=== PATIENT | female | born 1980 | race African-American/Black ===

== ENCOUNTER → 2017-07-13 | Emergency (ER) | payer MEDICAID ==
[~2017-07-13] MED LIST: ACETAMINOPHEN 325 MG TAB PO PRN; BACT800T5 PO; CEPH500C3 PO; LACTATED RINGER'S 1000 ML INJ 1,000 ML IV SCH; MISOPROSTOL 100 MCG TAB VAGINAL ONE; ONDANSETRON HCL 4 MG/2 ML VIAL IV PUSH PRN; SODIUM CHLORIDE 0.9% FLUSH 10 ML FLUSH IV FLUSH PRN; SODIUM CHLORIDE 0.9% FLUSH 10 ML FLUSH IV FLUSH SCH
--- NOTE | 2017-07-13 21:18 | PD ---
HPI Chief Complaint vaginal bleeding, abdominal cramping Date Seen: Jul 13, 2017 (Monty Drake MD, R3) Travel History International Travel<30 Days: No Contact w/Intl Traveler<30Days: No Known Affected Area: No (Monty Drake MD, R3) History of Present Illness HPI Ms. Mireles is a 37 yo at 12 weeks GA (12 weeks 6/7 days according to US performed at [facility] 07/11/2017; patient estimated at 16 weeks via LMP) who presents with vaginal bleeding and abdominal cramping. Patient states that these symptoms began yesterday. Patient reports that cramping is intermittent. Bleeding is moderate in quantity and fills up her panty liner. Patient states that she had a US 07/11 at [facility] in [place]; she was told her was normal at that time. Patient denies any fever/chills, headaches, chest pain, shortness of breath, abnormal urination, or abnormal bowel movements at this time. Patient reports no prior medical or surgical history. Patient reports normal course so far at [facility]. Records reviewed from [facility] imaging 07/11: Single IUP at 12 weeks 4 days; no heart tones. demise Weeks Gestation: 16 Para: 2 : 4 Miscarriage: 1 (Monty Drake MD, R3) History Past Medical History Medical History: Denies Significant Hx (Monty Drake MD, R3) Obstetric History Obstetric History 2 full term vaginal deliveries 8 and 17 years prior (Monty Drake MD, R3) Past Surgical History Surgical History: No Previous Surgery (Monty Drake MD, R3) Family History Family History: Negative (Monty Drake MD, R3) Social History Alcohol Use: No Tobacco Use: No Substance Abuse: No (Monty Drake MD, R3) Allergies-Medications (Allergen,Severity, Reaction): Coded Allergies: No Known Allergies (Unverified Allergy, Unknown, 07/13/17) Home Meds Active Scripts Cephalexin (Keflex) 500 Mg Cap, 500 MG PO Q6 for 10 Days, CAP Prov:Candie Mix MD 04/12/15 Sulfamethoxazole-Trimethoprim DS (Bactrim DS) 1 Tab Tab, 1 TAB PO Q12HR for 10 Days, TAB Prov:Candie Mix MD 04/12/15 Review of Systems General / Constitutional: No: Fever Eyes: No: Blurred Vision HENT: No: Headaches Cardiovascular: No: Chest Pain or Discomfort Respiratory: No: Short of Breath Gastrointestinal: No: Nausea, Vomiting Genitourinary: No: Urgency, Dysuria Skin: No Rash Neurologic: No: Weakness Psychiatric: No: Anxiety, Depression (Monty Drake MD, R3) Physical Exam BP 232/68 HR 76 Narrative GENERAL: Well-nourished, well-developed patient. SKIN: Warm and dry. HEAD: Normocephalic and atraumatic. EYES: No scleral icterus. No injection or drainage. ENT: No nasal drainage noted. Mucous membranes pink. Airway patent. CARDIOVASCULAR: Regular rate and rhythm without murmurs. Normal perfusion. No LE swelling RESPIRATORY: CTAB; normal rate ABDOMEN/GI: Abdomen soft, non-tender, bowel sounds present, no rebound, no guarding Gravid; FH below umbilicus EXTREMITIES: No cyanosis or edema. BACK: Nontender without obvious deformity. No CVA tenderness. NEUROLOGICAL: Awake and alert. Motor and sensory function grossly within normal limits. GENITOURINARY: Uterine Contractions: None FHT's: No heart tones obtained (Monty Drake MD, R3) Data Data Vital Signs Reviewed: Yes (Monty Drake MD, R3) MDM Medical Record Reviewed: Yes Narrative Course / MDM Ms. Mireles is a 37 yo at 12 weeks GA (12 weeks 6/7 days according to US performed at [facility] 07/11/2017; patient estimated at 16 weeks via LMP) who presents with vaginal bleeding and abdominal cramping -No heart tones with Doppler -Stable maternal vital sign Records reviewed from [facility] imaging 07/11: demise Plan: Bedside US obtained- No heart movement. Minimal/no amniotic fluid. Discussed with patient regarding and options for delivery Updated Plan: Discussed with patient that based on gestational and current stability, we recommend follow-up with RESEARCH STUDY ASSISTANT on-call (Dr. Nichols) for D&C -Advised pain control with Tylenol/Ibuprofen until f/u with Dr. Nichols -Discussed reasons to return to OB ED including fever/chills or other concerns (Monty Drake MD, R3) Diagnosis Diagnosis: Primary Impression: demise before 20 weeks with retention of fetus Disposition: 01 DISCHARGE HOME Condition: Stable Referrals: Lindsay Nichols MD 1 day Patient Instructions: General Instructions Collaborating MD Comments Patient at unknown gestational age followed by Adelia Grimes saw [facility] on 07/11 and had a demise at that time but no communication was done to patient. Sonogram here notes a 11 6/7 week demise, no fluid noted around fetus. Patient will be set up for appt to consider D&C. (Odette Arzate MD) Monty Drake MD, R3 Jul 13, 2017 21:18 Odette Arzate MD Jul 14, 2017 08:29
== END | disposition home or self-care (01) ==
LOC: HOBED 19:27
DX: O02.1 Missed abortion (principal)
CPT/HCPCS: 76815

== ENCOUNTER 2017-07-14 09:43 | Inpatient (IN) | payer MEDICAID ==
[~2017-07-14] VITALS: Ht 170.2 cm; Wt 68.0 kg
[2017-07-14] VITALS (7 sets, daily range): BP systolic 120–161; BP diastolic 62–87; PULSE 72–94; RESP 16–18; TEMP 98.6; O2SAT 95–100
[~2017-07-14 09:43] MED LIST changes: -ACETAMINOPHEN 325 MG TAB PO PRN; -LACTATED RINGER'S 1000 ML INJ 1,000 ML IV SCH; -MISOPROSTOL 100 MCG TAB VAGINAL ONE; -ONDANSETRON HCL 4 MG/2 ML VIAL IV PUSH PRN; -SODIUM CHLORIDE 0.9% FLUSH 10 ML FLUSH IV FLUSH PRN; -SODIUM CHLORIDE 0.9% FLUSH 10 ML FLUSH IV FLUSH SCH
--- NOTE | 2017-07-14 11:37 | PD ---
HPI Chief Complaint: Related Problem Time Seen by Provider: 11:29 Travel History International Travel<30 days: No Contact w/Intl Traveler<30days: No Traveled to known affect area: No History of Present Illness HPI Patient is at 11 weeks gestational age is emergency department vaginal bleeding and abdominal cramping. She was diagnosed yesterday with IUFD. She was seen upstairs in labor and delivery unit, she was deemed stable enough for outpatient workup and follow-up, she was referred to Dr. Nichols's office. She called Dr. Nichols's office this morning and they referred her back to the emergency department to have D&C. She states she still having abdominal cramping and some vaginal spotting. She states she is having fairly regular contractions as well. PFSH Past Medical History Hx Anticoagulant Therapy: No Cardiovascular Problems: No Chemotherapy: No Cerebrovascular Accident: No Diabetes: No Respiratory: No ?: Not : 2 Para: 2 Past Surgical History Hysterectomy: No Social History Alcohol Use: No Tobacco Use: No Substance Use: No Allergies-Medications (Allergen,Severity, Reaction): Coded Allergies: No Known Allergies (Verified Allergy, Unknown, 07/14/17) Reported Meds & Prescriptions Reported Meds & Active Scripts Active No Active Prescriptions or Reported Medications Review of Systems Except as stated in HPI: all other systems reviewed are Neg Physical Exam Narrative GENERAL: Well-developed well-nourished, appears uncomfortable peer SKIN: Warm and dry. HEAD: Atraumatic. Normocephalic. EYES: Pupils equal and round. No scleral icterus. No injection or drainage. ENT: No nasal bleeding or discharge. Mucous membranes pink and moist. NECK: Trachea midline. No JVD. CARDIOVASCULAR: Regular rate and rhythm. RESPIRATORY: No accessory muscle use. Clear to auscultation. Breath sounds equal bilaterally. GASTROINTESTINAL: Abdomen soft, non-tender, nondistended. Hepatic and splenic margins not palpable. MUSCULOSKELETAL: Extremities without clubbing, cyanosis, or edema. No obvious deformities. NEUROLOGICAL: Awake and alert. No obvious cranial nerve deficits. Motor grossly within normal limits. Five out of 5 muscle strength in the arms and legs. Normal speech. PSYCHIATRIC: Appropriate mood and affect; insight and judgment normal. Data Data Last Documented VS Vital Signs Date Time Temp Pulse Resp B/P (MAP) Pulse Ox O2 Delivery O2 Flow Rate FiO2 07/14/17 16:00 77 16 124/74 (91) 99 Room Air 07/14/17 09:45 98.6 Orders Orders Beta Hcg (Quant/Titer) (07/14/17 11:45) Complete Blood Count With Diff (07/14/17 11:45) Comprehensive Metabolic Panel (07/14/17 11:45) Prothrombin Time / Inr (Pt) (07/14/17 11:45) Act Partial Throm Time (Ptt) (07/14/17 11:45) Iv Access Insert/Monitor (07/14/17 11:45) Oximetry (07/14/17 11:45) Sodium Chloride 0.9% Flush (Ns Flush) (07/14/17 11:45) Type And Screen (07/14/17 11:45) Morphine Inj (Morphine Inj) (07/14/17 13:00) Ondansetron Inj (Zofran Inj) (07/14/17 13:00) Sodium Chlor 0.9% 1000 Ml Inj (Ns 1000 M (07/14/17 13:00) Us Pelvis (Ques Preg/Ectopic) (07/14/17 ) Hydromorphone Pf Inj (Dilaudid Pf Inj) (07/14/17 15:00) Oxytocin Inj (Pitocin Inj) (07/14/17 16:15) Methylergonovine Inj (Methergine Inj) (07/14/17 16:15) Misoprostol (Cytotec) (07/14/17 17:00) Hydromorphone Pf Inj (Dilaudid Pf Inj) (07/14/17 17:30) Labs Laboratory Tests Test 07/14/17 12:00 07/14/17 13:15 Blood Urea Nitrogen 7 MG/DL Creatinine 0.73 MG/DL Random Glucose 77 MG/DL Total Protein 8.2 GM/DL Albumin 3.6 GM/DL Calcium Level 8.7 MG/DL Alkaline Phosphatase 68 U/L Aspartate Amino Transf (AST/SGOT) 17 U/L Alanine Aminotransferase (ALT/SGPT) 17 U/L Total Bilirubin 0.5 MG/DL Sodium Level 140 MEQ/L Potassium Level 3.3 MEQ/L Chloride Level 105 MEQ/L Carbon Dioxide Level 27.2 MEQ/L Anion Gap 8 MEQ/L Estimat Glomerular Filtration Rate 109 ML/MIN Human Chorionic Gonadotropin, Quant 409 MIU/ML White Blood Count 9.5 TH/MM3 Red Blood Count 4.35 MIL/MM3 Hemoglobin 13.0 GM/DL Hematocrit 38.7 % Mean Corpuscular Volume 88.8 FL Mean Corpuscular Hemoglobin 29.9 PG Mean Corpuscular Hemoglobin Concent 33.7 % Red Cell Distribution Width 13.4 % Platelet Count 234 TH/MM3 Mean Platelet Volume 8.8 FL Neutrophils (%) (Auto) 60.3 % Lymphocytes (%) (Auto) 30.1 % Monocytes (%) (Auto) 7.3 % Eosinophils (%) (Auto) 2.0 % Basophils (%) (Auto) 0.3 % Neutrophils # (Auto) 5.7 TH/MM3 Lymphocytes # (Auto) 2.8 TH/MM3 Monocytes # (Auto) 0.7 TH/MM3 Eosinophils # (Auto) 0.2 TH/MM3 Basophils # (Auto) 0.0 TH/MM3 CBC Comment DIFF FINAL Differential Comment Prothrombin Time 10.0 SEC Prothromb Time International Ratio 1.0 RATIO Activated Partial Thromboplast Time 22.5 SEC MDM Medical Decision Making Medical Screen Exam Complete: Yes Emergency Medical Condition: Yes Differential Diagnosis Inevitable miscarriage, Rh mismatch, anemia, contractions. Narrative Course Patient roomed in the emergency department, working in tandem with the OB ED, the patient was observed here for several hours given pain medicine and her contractions actually slowed from every 5 minutes down to nothing. On my examination she did have a fair amount of blood and a small amount of membranous tissue at the eyes but nothing that can be grasped and extracted. At 4:00 the patient was discussed with Dr. Grove, she is recommended Methergine as well as Pitocin IM and doses were ordered after discussion with her. His medicines were given and MGMT SPECIALIST will be here to evaluate patient for possible D& C. At 1900 I reassessed the patient and she is still waiting for her products of conception the past. The patient was discussed with Dr. Schreiber who will continue to monitor her, if not passing that he will call the OB hospitalist again for consideration of D&C versus outpatient management Diagnosis Primary Impression: demise before 20 weeks with retention of fetus Scripts No Active Prescriptions or Reported Meds Riccardo Ku MD Jul 14, 2017 11:37
[2017-07-14] MEDS ORDERED: SODIUM CHLORIDE 0.9% FLUSH 10 ML FLUSH IV FLUSH PRN (11:45)
[2017-07-14] MEDS ORDERED: ONDANSETRON HCL 4 MG/2 ML VIAL IV PUSH ONE (13:00)
[2017-07-14] MEDS ORDERED: MORPHINE SULFATE 2 MG/ML INJ IV PUSH ONE (13:00)
[2017-07-14] MEDS ORDERED: SODIUM CHLOR 0.9% 1000 ML INJ 1,000 ML IV ONE (13:00)
[2017-07-14 13:01] LABS: ALBUMIN 3.6 GM/DL (3.4-5.0); ALKALINE PHOSPHATASE 68 U/L (45-117); ALT (GPT) 17 U/L (10-53); AST (GOT) 17 U/L (15-37); BICARBONATE 27.2 MEQ/L (21.0-32.0); BLOOD UREA NITROGEN 7 MG/DL (7-18); CALCIUM 8.7 MG/DL (8.5-10.1); CHLORIDE 105 MEQ/L (98-107); CREATININE 0.73 MG/DL (0.50-1.00); GLOMERULAR FILTRATION RATE 109 ML/MIN (>89); GLUCOSE,RANDOM 77 MG/DL (74-106); SODIUM (NA) 140 MEQ/L (136-145); TOTAL BILIRUBIN ADULT 0.5 MG/DL (0.2-1.0); TOTAL PROTEIN 8.2 GM/DL (6.4-8.2)
[2017-07-14 13:57] LABS: AUTOMATED NEUTROPHIL # 5.7 TH/MM3 (1.8-7.7); BASOPHIL % 0.3 % (0.0-2.0); EOSINOPHIL # 0.2 TH/MM3 (0-0.4); HEMATOCRIT 38.7 % (35.0-46.0); LYMPH % 30.1 % (9.0-44.0); LYMPHOCYTE # 2.8 TH/MM3 (1.0-4.8); MEAN CELL VOLUME 88.8 FL (80.0-100.0); MEAN CORPUSCULAR HEMOGLOBIN 29.9 PG (27.0-34.0); MEAN CORPUSCULAR HGB CONC 33.7 % (32.0-36.0); MEAN PLATELET VOLUME 8.8 FL (7.0-11.0); MONO % 7.3 % (0.0-8.0); MONOCYTE # 0.7 TH/MM3 (0-0.9); NEUT % 60.3 % (16.0-70.0); PLATELET COUNT 234 TH/MM3 (150-450); RED BLOOD COUNT 4.35 MIL/MM3 (4.00-5.30); RED CELL DISTRIBUTION WIDTH 13.4 % (11.6-17.2); WHITE BLOOD COUNT 9.5 TH/MM3 (4.0-11.0)
--- NOTE | 2017-07-14 14:34 | RADRPT ---
EXAM DATE/TIME: 07/14/2017 13:08 [place] COMPARISON: No previous studies available for comparison. INDICATIONS : Strong cramping and bleeding with . LAB(S): Beta-hC MEDICAL HISTORY : . SURGICAL HISTORY : None. ENCOUNTER: Initial ACUITY: 1 day PAIN SCORE: 8/10 LOCATION: Bilateral pelvis MEASUREMENTS: UTERUS: 14.3 x 6.7 x 7.9 cm ENDOMETRIAL STRIPE: >20 mm RIGHT OVARY: 3.6 x 2.2 x 3.0 cm LEFT OVARY: 4.8 x 2.9 x 3.9 cm FREE FLUID: Yes Trace in cul-de-sac CROWN RUMP LENGTH: 5.3 cm = 12 WKS 0 DAYS FHR: None BPM FINDINGS: UTERUS: Fetus seen in the lower uterine canal//cervical region. No heart tones. pole measures 12 weeks. RIGHT OVARY: Ovary contains no mass or significant cystic lesion. LEFT OVARY: Ovary contains no mass or significant cystic lesion. MISCELLANEOUS: No free fluid. CONCLUSION: 1. demise with impending . Leroy Cha MD on July 14, 2017 at 14:29 Board Certified Radiologist. This report was verified electronically.
[2017-07-14] MEDS ORDERED: HYDROmorphone HCL PF 2 MG/ML VIAL IV PUSH ONE ×2 (15:00→23:45)
[2017-07-14] MEDS ORDERED: OXYTOCIN 10 UNIT/ML AMP IM ONE (16:15)
[2017-07-14] MEDS ORDERED: METHYLERGONOVINE MALEATE 0.2 MG/ML VIAL IM ONE (16:15)
[2017-07-14] MEDS ORDERED: MISOPROSTOL 200 MCG TAB RECTAL ONE (17:00)
--- NOTE | 2017-07-14 17:28 | HHI.PR ---
Subjective Remarks Attending note Patient is a 37y/o who was seen last night with a missed Ab. On 07/11/17 she had an ultrasound that showed a fetus measuring 12 weeks. She reportedly had assumed everything was normal, although her report there was no FHR noted on the U/S. She was discharged home last night after presenting with cramping and light bleeding. She presents today with increased cramping and contractions. She reports that the cramping and contractions worsened about 11 PM last night. She reports that this time they were still relatively far apart occurring only occasionally. She reports that this morning around 10 AM the increased to every 10-20 minutes in frequency and were of much more intensity. She reports that at 11 AM she started feeling these contractions every 2-5 minutes. She reports that her bleeding has been light and is just on her third pad since the morning. We discussed that she is having a miscarriage and discussed that there is lower risk associated with allowing her to pass the products without surgical intervention. We discussed that surgery may be required for an incomplete AB or if she experiences significantly heavy bleeding. She was consented for an EUA, D&C, and any other indicated procedures prior to medicating in the event she did not complete the SAB on her own or for heavy bleeding. The risks, benefits, and alternatives were discussed at length including but not limited to pain, infection, bleeding, injury to other organs like the bladder/bowel/nerves/vessels, the need for repeat operation, the need for hysterectomy, the need for blood transfusion, uterine scarring that could interfere with future pregnancies, uterine perforation, and other possible risks. The patient had all of her questions answered and consent was signed. The patient received 10 mg of oxytocin IM 0.2 mg of Methergine IM. 1 mg of Dilaudid was administered for cramping and contractions. Examination at 5:45 PM revealed about 75cc of blood in the vault. Upon the speculum exam the amniotic sac was visualized protruding at the cervix. A vaginal exam reveals a cervix that was 3 cm dilated and thinning out with the sac palpable at edge of cervical os. The patient tolerated the examination well. Cytotec 800 g was placed rectally. We will continue to observe and await/anticipate spontaneous passage at this time. Objective Vital Signs Date Time Temp Pulse Resp B/P (MAP) Pulse Ox O2 Delivery O2 Flow Rate FiO2 07/14/17 14:00 82 16 125/75 (92) 99 Room Air 07/14/17 13:22 99 Room Air 07/14/17 12:00 72 16 127/74 (91) 99 Room Air 07/14/17 09:45 98.6 94 18 161/87 (111) 100 Result Diagram: 07/14/17 1315 07/14/17 1200 Norma Grove MD Jul 14, 2017 17:28
[2017-07-14] MEDS ORDERED: HYDROmorphone HCL PF 2 MG/ML VIAL IV ONE (17:30)
--- NOTE | 2017-07-14 18:35 | HHI.HP ---
HPI Chief Complaint miscarriage Date Seen: Jul 14, 2017 Time Seen: 16:30 Travel History International Travel<30 Days: No Contact w/Intl Traveler<30Days: No Known Affected Area: No History of Present Illness HPI Ms. Mireles is a 37yo [place] female at about 12 weeks gestation with no significant PMH presenting to the ED with vaginal bleeding and likely miscarriage. She was seen in the OB ED last night where an intrauterine demise was diagnosed. Patient was sent home to follow up with Dr. Nichols for a D&C. However, she was told over the phone to come to the hospital for the procedure. She states that her bleeding started and increased today to becoming more like a menstrual cycle. She she also started cramping today. She states that the cramps occur every few minutes. They are located in her lower abdomen. Weeks Gestation: 12 Para: 2 : 4 History Past Medical History Medical History: Denies Significant Hx Obstetric History Obstetric History First -elective by oral medication Second -boy, 17 years old, term, Third -girl, 8 years old, term, Past Surgical History Surgical History: No Previous Surgery Family History Narrative Family History Mother-thyroid problems Father recently passed from prostate cancer Social History Narrative Social History Lives with her children Is employed Denies alcohol, tobacco, or illicit drug use Alcohol Use: No Tobacco Use: No Substance Abuse: No Allergies-Medications (Allergen,Severity, Reaction): Coded Allergies: No Known Allergies (Verified Allergy, Unknown, 07/14/17) Home Meds Discontinued Scripts Cephalexin (Keflex) 500 Mg Cap, 500 MG PO Q6 for 10 Days, CAP Prov:Candie Mix MD 04/12/15 Sulfamethoxazole-Trimethoprim DS (Bactrim DS) 1 Tab Tab, 1 TAB PO Q12HR for 10 Days, TAB Prov:Candie Mix MD 04/12/15 Review of Systems General / Constitutional: No: Fever, Chills HENT: Lightheadedness, No: Headaches Cardiovascular: No: Chest Pain or Discomfort Respiratory: No: Short of Breath Gastrointestinal: Abdominal Pain Genitourinary: No: Dysuria Musculoskeletal: No: Weakness Skin: No Rash Neurologic: Dizziness Physical Exam Vital Signs Date Time Temp Pulse Resp B/P (MAP) Pulse Ox O2 Delivery O2 Flow Rate FiO2 07/14/17 14:00 82 16 125/75 (92) 99 Room Air 07/14/17 13:22 99 Room Air 07/14/17 12:00 72 16 127/74 (91) 99 Room Air 07/14/17 09:45 98.6 94 18 161/87 (111) 100 Narrative GENERAL: Well-nourished, well-developed patient. SKIN: Warm and dry. HEAD: Normocephalic and atraumatic. EYES: No scleral icterus. No injection or drainage. ENT: No nasal drainage noted. Mucous membranes pink. Airway patent. NECK: Supple, trachea midline. No JVD. CARDIOVASCULAR: Regular rate and rhythm without murmurs, gallops, or rubs. RESPIRATORY: Breath sounds equal bilaterally. No accessory muscle use. ABDOMEN/GI: Abdomen soft, non-tender, bowel sounds present, no rebound, no guarding GENITOURINARY: External Genitalia: intact and normal in appearance Cervix: midline, dilated with bag bulging from os EXTREMITIES: No cyanosis or edema. BACK: Nontender without obvious deformity. No CVA tenderness. NEUROLOGICAL: Awake and alert. Motor and sensory grossly within normal limits. Five out of 5 muscle strength in all muscle groups. Normal speech. Caprini VTE Risk Assessment Caprini VTE Risk Assessment: No/Low Risk (score <= 1) Caprini Risk Assessment Model Point Value = 1 Point Value = 2 Point Value = 3 Point Value = 5 Age 41-60 Minor surgery BMI > 25 kg/m2 Swollen legs Varicose veins or History of unexplained or recurrent spontaneous Oral contraceptives or hormone replacement Sepsis (< 1 month) Serious lung disease, including pneumonia (< 1 month) Abnormal pulmonary function Acute myocardial infarction Congestive heart failure (< 1 month) History of inflammatory bowel disease Medical patient at bed rest Age 61-74 Arthroscopic surgery Major open surgery (> 45 min) Laparoscopic surgery (> 45 min) Malignancy Confined to bed (> 72 hours) Immobilizing plaster cast Central venous access Age >= 75 History of VTE Family history of VTE Factor V Leiden Prothrombin [id number] Lupus anticoagulant Anticardiolipin antibodies Elevated serum homocysteine Heparin-induced thrombocytopenia Other congenital or acquired thrombophilia Stroke (< 1 month) Elective arthroplasty Hip, pelvis, or leg fracture Acute spinal cord injury (< 1 month) Prophylaxis Regimen Total Risk Factor Score Risk Level Prophylaxis Regimen 0-1 Low Early ambulation 2 Moderate Order ONE of the following: *Sequential Compression Device (SCD) *Heparin 5000 units SQ BID 3-4 Higher Order ONE of the following medications: *Heparin 5000 units SQ TID *Enoxaparin/Lovenox 40 mg SQ daily (WT < 150 kg, CrCl > 30 mL/min) *Enoxaparin/Lovenox 30 mg SQ daily (WT < 150 kg, CrCl > 10-29 mL/min) *Enoxaparin/Lovenox 30 mg SQ BID (WT < 150 kg, CrCl > 30 mL/min) AND/OR *Sequential Compression Device (SCD) 5 or more Highest Order ONE of the following medications: *Heparin 5000 units SQ TID (Preferred with Epidurals) *Enoxaparin/Lovenox 40 mg SQ daily (WT < 150 kg, CrCl > 30 mL/min) *Enoxaparin/Lovenox 30 mg SQ daily (WT < 150 kg, CrCl > 10-29 mL/min) *Enoxaparin/Lovenox 30 mg SQ BID (WT < 150 kg, CrCl > 30 mL/min) AND *Sequential Compression Device (SCD) Data Data Vital Signs Reviewed: Yes Orders Orders Beta Hcg (Quant/Titer) (07/14/17 11:45) Complete Blood Count With Diff (07/14/17 11:45) Comprehensive Metabolic Panel (07/14/17 11:45) Prothrombin Time / Inr (Pt) (07/14/17 11:45) Act Partial Throm Time (Ptt) (07/14/17 11:45) Iv Access Insert/Monitor (07/14/17 11:45) Oximetry (07/14/17 11:45) Sodium Chloride 0.9% Flush (Ns Flush) (07/14/17 11:45) Type And Screen (07/14/17 11:45) Morphine Inj (Morphine Inj) (07/14/17 13:00) Ondansetron Inj (Zofran Inj) (07/14/17 13:00) Sodium Chlor 0.9% 1000 Ml Inj (Ns 1000 M (07/14/17 13:00) Us Pelvis (Ques Preg/Ectopic) (07/14/17 ) Hydromorphone Pf Inj (Dilaudid Pf Inj) (07/14/17 15:00) Oxytocin Inj (Pitocin Inj) (07/14/17 16:15) Methylergonovine Inj (Methergine Inj) (07/14/17 16:15) Misoprostol (Cytotec) (07/14/17 17:00) Hydromorphone Pf Inj (Dilaudid Pf Inj) (07/14/17 17:30) Labs Laboratory Tests Test 07/14/17 12:00 07/14/17 13:15 Blood Urea Nitrogen 7 Creatinine 0.73 Random Glucose 77 Total Protein 8.2 Albumin 3.6 Calcium Level 8.7 Alkaline Phosphatase 68 Aspartate Amino Transf (AST/SGOT) 17 Alanine Aminotransferase (ALT/SGPT) 17 Total Bilirubin 0.5 Sodium Level 140 Potassium Level 3.3 Chloride Level 105 Carbon Dioxide Level 27.2 Anion Gap 8 Estimat Glomerular Filtration Rate 109 Human Chorionic Gonadotropin, Quant 409 White Blood Count 9.5 Red Blood Count 4.35 Hemoglobin 13.0 Hematocrit 38.7 Mean Corpuscular Volume 88.8 Mean Corpuscular Hemoglobin 29.9 Mean Corpuscular Hemoglobin Concent 33.7 Red Cell Distribution Width 13.4 Platelet Count 234 Mean Platelet Volume 8.8 Neutrophils (%) (Auto) 60.3 Lymphocytes (%) (Auto) 30.1 Monocytes (%) (Auto) 7.3 Eosinophils (%) (Auto) 2.0 Basophils (%) (Auto) 0.3 Neutrophils # (Auto) 5.7 Lymphocytes # (Auto) 2.8 Monocytes # (Auto) 0.7 Eosinophils # (Auto) 0.2 Basophils # (Auto) 0.0 CBC Comment DIFF FINAL Differential Comment Prothrombin Time 10.0 Prothromb Time International Ratio 1.0 Activated Partial Thromboplast Time 22.5 Assessment/Plan Problem List: (1) demise before 20 weeks with retention of fetus ICD Codes: O02.1 - Missed Status: Acute Plan: 37yo at about 12 weeks gestation presenting with an incomplete spontaneous . -Pelvic ultrasound shows demise with impending -Beta-hCG quant is 409 -Methergine 0.2 mg IM 1 -Oxytocin 10 units IM x1 -Cytotec 800 mcg rectally -We will continue to monitor patient, physical exam shows that a complete is eminent -Patient is likely to not need a D&C Marika Mario MD R1 Jul 14, 2017 18:35
--- NOTE | 2017-07-14 21:51 | HHI.PR ---
Subjective Remarks Attending note Patient is a 37y/o with missed Ab at 12w, presented with early spontaneous SAB in progress. She received 0.2mg methergine IM, oxytocin 10mg IM , and cytotec 800mcg. When she was examined at approximately 5:45 pm she was 3 cm dilated with thinned cervix and bag of membranes palpable at os. At this time she reports that she is continuing to feel cramping, but is overall comfortable. She would like to eat. On exam at 8:45 pm, cervix appears to have continued to dilate but was not palpable at risk of rupture of sac containing POC and these products are palpable at top of vagina. We will continue to observe closely and await/anticipate spontaneous passage at this time. Objective Vital Signs Date Time Temp Pulse Resp B/P (MAP) Pulse Ox O2 Delivery O2 Flow Rate FiO2 07/14/17 16:00 77 16 124/74 (91) 99 Room Air 07/14/17 14:00 82 16 125/75 (92) 99 Room Air 07/14/17 13:22 99 Room Air 07/14/17 12:00 72 16 127/74 (91) 99 Room Air 07/14/17 09:45 98.6 94 18 161/87 (111) 100 Result Diagram: 07/14/17 1315 07/14/17 1200 Norma Grove MD Jul 14, 2017 21:51
[2017-07-14] MEDS ORDERED: HYDROmorphone HCL PF 1 MG/ML VIAL IV PUSH ONE (23:45)
[2017-07-14] MEDS ORDERED: LACTATED RINGER'S 1000 ML INJ 1,000 ML IV PRN (23:57)
[2017-07-15] MEDS ORDERED: SODIUM CHLORID 0.9% 500 ML INJ 500 ML IV PRN
[2017-07-15] MEDS ORDERED: OXYTOCIN 30 UNITS-500ML PREMIX 500 ML IV ONE
[2017-07-15] MEDS ORDERED: oxyCODONE/ACETAMINOPHEN 5 MG/325 MG TAB PO PRN ×2 (00:15)
--- NOTE | 2017-07-15 00:15 | HHI.PR ---
Subjective Remarks Attending note Patient is a 37y/o who presented yesterday with an AB in progress at 12.0. She received 800mcg cytotec OK, 0.2mg methergine IM, and 10mg oxytocin IM. At 5:45 pm she was 3cm dilated with the bag palpable at cervical os, at 8: 45 the bag was palpable at the top of the vagina. At 11:15pm the bag was protruding from the vagina. The placenta was partially detached and delivered but additional POC were palpable but cervix rapidly clamped down prior to evacuation of the remainder of the placenta. The patient would prefer to avoid surgery if possible and is amenable to further medial management if possible. The patient is not bleeding heavily at this time. Will administer cytotec 600mcg sublingually for up to 2 doses and monitor closely as an observation patient. The patient is hemodynamically stable at this time so will continue to manage medically. Objective Vital Signs Date Time Temp Pulse Resp B/P (MAP) Pulse Ox O2 Delivery O2 Flow Rate FiO2 07/15/17 00:07 20 07/14/17 23:13 73 16 129/62 (84) 100 Room Air 07/14/17 22:04 72 16 120/72 (88) 95 Room Air 07/14/17 16:00 77 16 124/74 (91) 99 Room Air 07/14/17 14:00 82 16 125/75 (92) 99 Room Air 07/14/17 13:22 99 Room Air 07/14/17 12:00 72 16 127/74 (91) 99 Room Air 07/14/17 09:45 98.6 94 18 161/87 (111) 100 Result Diagram: 07/14/17 1315 07/14/17 1200 Norma Grove MD Jul 15, 2017 00:15
[2017-07-15] MEDS ORDERED: SODIUM CHLOR 0.9% 1000 ML INJ 1,000 ML IV PRN (00:17)
[2017-07-15 01:00] VITALS: BP 126/60; PULSE 72; RESP 16; O2SAT 100
[2017-07-15] MEDS: DOXYCYCLINE HYCLATE 100 MG TAB PO SCH ×2 (01:08→09:00)
[2017-07-15] MEDS: MISOPROSTOL 200 MCG TAB PO SCH ×2 (02:27→06:15)
[2017-07-15 03:00] VITALS: BP 122/62; PULSE 76; RESP 16; O2SAT 99
[2017-07-15 05:15] VITALS: BP 124/66; PULSE 78; RESP 16; O2SAT 100
[2017-07-15 08:00] VITALS: BP 113/63; PULSE 83; RESP 16; O2SAT 98
--- NOTE | 2017-07-15 09:57 | HHI.PR ---
Subjective Remarks Attending note Patient is a 37y/o who presented yesterday with an AB in progress at 12.0 weeks. She received 800mcg cytotec AR, 0.2mg methergine IM, and 10mg oxytocin IM. At 5:45 pm she was 3cm dilated with the bag palpable at cervical os , at 8:45 the bag was palpable at the top of the vagina. At 11:15pm the bag was protruding from the vagina. The placenta was partially detached and delivered but additional POC were palpable but cervix rapidly clamped down prior to evacuation of the remainder of the placenta. The patient would prefer to avoid surgery if possible and is amenable to further medial management if possible. The patient is not bleeding heavily at this time. The plan was made for cytotec 600mcg sublingually for up to 2 doses and monitor closely as an observation patient. The patient received both doses of cytotec orally with the last dose given at 6:15 am. The patient is hemodynamically stable at this time. The patient was discussed with Dr. Grullon. We will obtain a transvaginal US to evaluate for retained POC and location if present. Will repeat CBC and BMP, coags. Consider KCl if K low. The patient was counseled that if the US shows retained POC located in the fundus, she would likely require a D&C that would be performed by Dr. Grullon. If they are located in the YSABEL or at the os, the decision would be made at that time. All of the patient's questions were answered. Consent previously signed and on the chart. >25 minutes face to face , over 50% in counseling and care coordination. Objective Vital Signs Date Time Temp Pulse Resp B/P (MAP) Pulse Ox O2 Delivery O2 Flow Rate FiO2 07/15/17 08:00 83 16 113/63 (80) 98 Room Air 07/15/17 05:15 78 16 124/66 (85) 100 Room Air 07/15/17 03:00 76 16 122/62 (82) 99 Room Air 07/15/17 01:00 72 16 126/60 (82) 100 Room Air 07/15/17 00:07 20 07/14/17 23:13 73 16 129/62 (84) 100 Room Air 07/14/17 22:04 72 16 120/72 (88) 95 Room Air 07/14/17 16:00 77 16 124/74 (91) 99 Room Air 07/14/17 14:00 82 16 125/75 (92) 99 Room Air 07/14/17 13:22 99 Room Air 07/14/17 12:00 72 16 127/74 (91) 99 Room Air Result Diagram: 07/14/17 1315 07/14/17 1200 Norma Grove MD Jul 15, 2017 09:56
--- NOTE | 2017-07-15 11:17 | RADRPT ---
EXAM DATE/TIME: 07/15/2017 10:46 [facility] COMPARISON: No previous studies available for comparison. INDICATIONS : Vaginal bleeding, evaluate for products of conception. MEDICAL HISTORY : Vaginal bleeding. SURGICAL HISTORY : None. ENCOUNTER: Subsequent ACUITY: 2 days PAIN SCORE: 5/10 LOCATION: Bilateral pelvis MEASUREMENTS: UTERUS: 12.5 x 6.9 x 5.2 cm ENDOMETRIAL STRIPE: 14 mm RIGHT OVARY: 3.3 x 2.4 x 2.1 cm LEFT OVARY: 2.6 x 2.4 x 2.0 cm FINDINGS: UTERUS: The endometrium is normal in thickness. No endometrial fluid is noted. No retained products of concep tion are confirmed sonographically. There is a small hypoechoic mass within the fundus of the uterus measuring 2.3 x 2.0 x 1.6 cm consistent with probable fibroid. RIGHT OVARY: Ovary contains no mass or significant cystic lesion. LEFT OVARY: Ovary contains no mass or significant cystic lesion. MISCELLANEOUS: No free fluid. CONCLUSION: 1. No sonographic evidence of retained products of conception. 2. Probable small fundal fibroid measuring 2.3 x 2.0 x 1.6 cm. 3. Unremarkable ovaries bilaterally. Riccardo Bishop MD on July 15, 2017 at 11:13 Board Certified Radiologist. This report was verified electronically.
[2017-07-15 11:42] VITALS: RESP 16
--- NOTE | 2017-07-15 12:08 | HHI.PR ---
COMPLIANCE SPECIALIST Note Note I assumed care of pt at 10:00am. She is s/p TVUS which revealed no POCs in the uterus. She has been hemodynamically stable. Recommend d/c home with precautions. Spoke with ED provider and plan of care reviewed. bOdulia Cantrell MD Jul 15, 2017 12:08
== END 2017-07-15 15:00 | disposition home or self-care (01) | DRG 779 ==
LOC: NEPD 09:43 → NEDA 07-15 01:07 → NEDH 07-15 05:25
PROVIDERS: ADMIT Obstetrics & Gynecology; ATTEND Obstetrics & Gynecology
PROC: 10D07Z8 Extraction of Products of Conception, Other, Via Natural or Artificial Opening (ICD-10-PCS; principal; 2017-07-15)
DX: O02.1 Missed abortion (principal)
CPT/HCPCS: 76700; 76856; 80053; 84702; 85025; 85610; 85730; 86850; 86900; 86901; 88300; 88305; J1170; J2210; J2270; J2405; J2590; J7030

== ENCOUNTER 2017-07-15 15:16 | Emergency (ER) | payer MEDICAID ==
[2017-07-15 15:20] VITALS: BP 117/63; PULSE 76; RESP 16; TEMP 98.3; O2SAT 99
[2017-07-15] MEDS ORDERED: oxyCODONE/ACETAMINOPHEN 5 MG/325 MG TAB PO ONE (15:45)
--- NOTE | 2017-07-15 16:25 | PD ---
HPI Chief Complaint: Pain: Acute or Chronic Time Seen by Provider: 15:40 Travel History International Travel<30 days: No Contact w/Intl Traveler<30days: No Traveled to known affect area: No History of Present Illness HPI 37 yo F complains of pain in the right arm. She was discharged from our hospital at the time of onset of pain just dirty minutes prior to this evaluation. The pain is constant and increasing. The patient received IV fluids to the right arm as well as Cytotec, oxytocin, and methylergonovine. Pain is worse with palpation. It's moderately severe. She was seen and evaluated for missed amidst incomplete spontaneous . PFSH Past Medical History Hx Anticoagulant Therapy: No Cardiovascular Problems: No Chemotherapy: No Cerebrovascular Accident: No Diabetes: No Diminished Hearing: No Respiratory: No Immunizations Current: Yes : 4 Para: 2 : 1 Past Surgical History Hysterectomy: No Social History Alcohol Use: No Tobacco Use: No Substance Use: No Allergies-Medications (Allergen,Severity, Reaction): Coded Allergies: No Known Allergies (Verified Allergy, Unknown, 07/15/17) Reported Meds & Prescriptions Reported Meds & Active Scripts Active No Active Prescriptions or Reported Medications Review of Systems Except as stated in HPI: all other systems reviewed are Neg General / Constitutional: No: Fever, Chills Gastrointestinal: Positive: Abdominal Pain Physical Exam Narrative GENERAL: 37 yo F, WNWD, mild distress SKIN: Warm and dry. HEAD: Atraumatic. Normocephalic. EYES: Pupils equal and round. No scleral icterus. No injection or drainage. ENT: No nasal bleeding or discharge. Mucous membranes pink and moist. NECK: Trachea midline. No JVD. CARDIOVASCULAR: Regular rate and rhythm. RESPIRATORY: No accessory muscle use. Clear to auscultation. Breath sounds equal bilaterally. GASTROINTESTINAL: Abdomen soft, non-tender, nondistended. Hepatic and splenic margins not palpable. MUSCULOSKELETAL: RUE swelling with erythema and induration. 2+ radial artery pulses bilaterally. Ambulatory. NEUROLOGICAL: Awake and alert. No obvious cranial nerve deficits. Motor grossly within normal limits. Five out of 5 muscle strength in the arms and legs. Normal speech. PSYCHIATRIC: Appropriate mood and affect; insight and judgment normal. Data Data Last Documented VS Vital Signs Date Time Temp Pulse Resp B/P (MAP) Pulse Ox O2 Delivery O2 Flow Rate FiO2 07/15/17 20:17 07/15/17 18:35 18 07/15/17 15:20 98.3 76 99 Room Air Orders Orders Oxycodone-Acetamin 5-325 Mg (Percocet (07/15/17 15:45) Us Arm Venous Doppler (07/15/17 ) Elbow, Complete (4 Vws) (07/15/17 ) Ed Discharge Order (07/15/17 20:14) MDM Medical Decision Making Medical Screen Exam Complete: Yes Emergency Medical Condition: Yes Medical Record Reviewed: Yes Differential Diagnosis DVT, iv infiltration, cellulitis Narrative Course Case discussed with oncoming provider, Dr Martini, who will follow up radiologist interpretation Wet read discussed with Dr Gomez of vascular surgery and a plan was made for admission pending final read Diagnosis Primary Impression: Pain and swelling of right upper extremity Med/Other Pt SpecificInfo: Prescription(s) given Scripts No Active Prescriptions or Reported Meds Disposition: 01 DISCHARGE HOME Condition: Stable Eris Marcum MD Jul 15, 2017 16:25
--- NOTE | 2017-07-15 17:27 | RADRPT ---
EXAM DATE/TIME: 07/15/2017 16:40 [facility] COMPARISON: No previous studies available for comparison. INDICATIONS : Right arm swelling. MEDICAL HISTORY : . SURGICAL HISTORY : None. ENCOUNTER: Initial ACUITY: 3 days PAIN SCORE: 7/10 LOCATION: Right arm. FINDINGS: Apparent catheter fragment in the cephalic vein basi fossa. Plain film correlation, 3 views of the e lbow is suggested. Minimal thrombosis around the apparent catheter CONCLUSION: Probable retained catheter fragment. 3 views of the elbow are suggested.. Scooby Brice MD FACR on July 15, 2017 at 17:23 Board Certified Radiologist. This report was verified electronically.
[2017-07-15 18:35] VITALS: RESP 18
--- NOTE | 2017-07-15 19:03 | RADRPT ---
EXAM DATE/TIME: 07/15/2017 17:35 [facility] COMPARISON: No previous studies available for comparison. INDICATIONS : Mild pain in arm, concern for foreign body: plastic from IV catheter. MEDICAL HISTORY : None. SURGICAL HISTORY : None. ENCOUNTER: Initial ACUITY: 1 day PAIN SCORE: 3/10 LOCATION: Right elbow. FINDINGS: Multiple view examination of the right elbow demonstrates no soft tissue swelling, joint effusion, or fracture. The osseous structures are in normal alignment. Bony mineralization is normal. There is no radiopaque foreign body CONCLUSION: There is no radiopaque foreign body. Findings seen by ultrasound appears artifactual and probably re presents minimal thrombus.. Scooby Brice MD FACR on July 15, 2017 at 18:58 Board Certified Radiologist. This report was verified electronically.
--- NOTE | 2017-07-15 20:14 | PD ---
Data Data Last Documented VS Vital Signs Date Time Temp Pulse Resp B/P (MAP) Pulse Ox O2 Delivery O2 Flow Rate FiO2 07/15/17 18:35 18 07/15/17 15:20 98.3 76 117/63 (81) 99 Room Air Orders Orders Oxycodone-Acetamin 5-325 Mg (Percocet (07/15/17 15:45) Us Arm Venous Doppler (07/15/17 ) Elbow, Complete (4 Vws) (07/15/17 ) MDM Supervised Visit with RU: No Narrative Course This case was checked out to me by Dr. Marcum at 5 PM. He had an ultrasound of her right arm given that it became reddened and painful and swollen today. It was at the site of her IV placement. Results were concerning for a retained needle fragment. But it wasn't quite conclusive. Some elbow x-rays were done to evaluate for foreign body which did not show any evidence of metallic fragment A second ultrasound was done which Dr. Brice has reviewed and I discussed it with him. He says there is no foreign body such as a needle present. However there is a very short segment 1.5 cm thrombosis there. I reviewed in detail with Dr. Canales manager of organizational development. This is considered a superficial vein and would not require anticoagulation. However she is not a candidate for such at this time given her active vaginal bleeding. She will apply warm compresses and follow-up as outpatient I reviewed her labs. Current hemoglobin is 13 Diagnosis Primary Impression: Superficial thrombophlebitis Qualified Codes: I80.8 - Phlebitis and thrombophlebitis of other sites Additional Impression: Vaginal bleeding Additional Instruction: Apply warm compresses to right arm The patient was advised to follow up with their physician or manager of organizational development Dr. Canales Med/Other Pt SpecificInfo: Other Scripts No Active Prescriptions or Reported Meds Disposition: DISCHARGE HOME Condition: Stable Isaac Martini MD Jul 15, 2017 20:14
== END 2017-07-15 20:26 | disposition home or self-care (01) ==
LOC: NEPD 15:16
DX: I80.8 Phlebitis and thrombophlebitis of other sites (principal); N93.9 Abnormal uterine and vaginal bleeding, unspecified
CPT/HCPCS: 73080; 93971